=== PATIENT | female | born 1965 | race African-American/Black ===

== ENCOUNTER 2025-07-01 20:45 | Emergency (ER) | payer OTHER ==
[~2025-07-01] VITALS: Ht 165.1 cm; Wt 52.2 kg
[2025-07-01 21:03] VITALS: RESP 16; TEMP 36.8; O2SAT 100
[2025-07-01 23:17] VITALS: BP 151/89; PULSE 59; O2SAT 99
== END 2025-07-01 23:21 | disposition home or self-care (01) ==
LOC: ER 20:45
DX: M54.50 Low back pain, unspecified (principal)
CPT/HCPCS: 99282